=== PATIENT | female | born 1950 | race Caucasian/White ===

== ENCOUNTER 2016-09-26 09:04 | Emergency (ER) | payer MEDICARE, OTHER ==
--- NOTE | 2016-09-26 11:12 | RAD ---
Indication: Left foot injury. 3 views of left fifth digit demonstrates no fracture. No other bone or joint abnormalities identified. Soft tissue swelling is noted. IMPRESSION: No fracture of left fifth digit is noted.
[2016-09-26 11:24] VITALS: BP 139/70
--- NOTE | 2016-09-26 11:50 | UC ---
Lower Extremity/Ankle HPI - HPI Summary HPI Summary: YESTERDAY HIT LEFT FIFTH TOE ON DRESSER. BRUISING TO ANGI AND SWELLING IN FOOT. ABLE TO BEAR WEIGHT. CONCERN FOR FRACTURE - History of Current Complaint Chief Complaint: UCLowerExtremity Stated Complaint: FOOT INJURY Time Seen by Provider: 09/26/16 10:32 Hx Obtained From: Patient Hx Last Menstrual Period: post menapause Onset/Duration: Sudden Onset, Lasting Days Severity Initially: Moderate Severity Currently: Mild Aggravating Factor(s): Standing, Ambulation Able to Bear Weight: Yes - Risk Factors Gout Risk Factors: Negative DVT Risk Factors: Negative Septic Arthritis Risk Factor: Negative - Allergies/Home Medications Allergies/Adverse Reactions: Allergies Allergy/AdvReac Type Severity Reaction Status Date / Time Penicillins Allergy Severe Hives Verified 09/26/16 10:02 Propoxyphene [From Darvon] Allergy Severe Altered Verified 09/26/16 10:02 Mental Status Amoxicillin Allergy Hives Verified 09/26/16 10:02 Codeine Allergy Altered Verified 09/26/16 10:02 Mental Status crab Allergy Severe Hives Uncoded 09/26/16 10:02 eledon cream Allergy Severe Blisters Uncoded 09/26/16 10:02 Home Medications: Home Medications Risedronate (NF) [Actonel (NF)] 09/26/16 [History] PMH/Surg Hx/FS Hx/Imm Hx Previously Healthy: Yes - Surgical History Surgical History: Yes Surgery Procedure, Year, and Place: wrist surgary 2011. cyst from thyroid- 1971. tonsils-1952. D&C. tumor removed below ear - Family History Known Family History: Positive: Other Family History: Brother with breast cancer in his 60's - Social History Lives: With Family Alcohol Use: Occasionally Substance Use Type: None Smoking Status (MU): Never Smoked Tobacco - Immunization History Most Recent Influenza Vaccination: utd Most Recent Tetanus Shot: fall 2011 Most Recent Pneumonia Vaccination: utd Review of Systems Constitutional: Negative Skin: Bruising Eyes: Negative ENT: Negative Respiratory: Negative Cardiovascular: Negative Gastrointestinal: Negative Genitourinary: Negative Motor: Negative Neurovascular: Negative Musculoskeletal: Negative Neurological: Negative Psychological: Negative All Other Systems Reviewed And Are Negative: Yes Physical Exam Triage Information Reviewed: Yes Appearance: Well-Appearing, No Pain Distress, Well-Nourished Vital Signs: Initial Vital Signs Temp 97.8 F 09/26/16 10:04 Pulse 68 09/26/16 10:04 Resp 16 09/26/16 10:04 BP 145/85 09/26/16 10:04 Pulse Ox 100 09/26/16 10:04 Vital Signs Reviewed: Yes Eye Exam: Normal ENT Exam: Normal Dental Exam: Normal Neck exam: Normal Neck: Positive: Supple, Nontender, No Lymphadenopathy Respiratory Exam: Normal Respiratory: Positive: Chest non-tender, Lungs clear, Normal breath sounds, No respiratory distress, No accessory muscle use Cardiovascular Exam: Normal Cardiovascular: Positive: RRR, No Murmur, Pulses Normal Abdominal Exam: Normal Musculoskeletal Exam: Normal Musculoskeletal: Positive: Strength Intact, ROM Intact, Edema @ - LEFT FIFTH TOE Neurological Exam: Normal Psychological Exam: Normal Skin: Positive: Other - BRUISING LEFT FIFTH TOE Lower Extremity Course/Dx - Differential Dx/Diagnosis Differential Diagnosis/HQI/PQRI: Fracture (Closed), Sprain, Strain Provider Diagnoses: CONTUSION LEFT FIFTH TOE Discharge - Discharge Plan Condition: Stable Disposition: HOME Patient Education Materials: Foot Contusion (ED) Referrals: [facility] [Outside] Ashutosh Hernandez MD [Primary Care Provider] -
== END 2016-09-26 12:05 | disposition home or self-care (01) ==
LOC: UCEAST 09:04
DX: S90.122A Contusion of left lesser toe(s) without damage to nail, initial encounter (principal); W22.03XA Walked into furniture, initial encounter; Y93.9 Activity, unspecified; Y92.9 Unspecified place or not applicable; Z88.5 Allergy status to narcotic agent; Z88.0 Allergy status to penicillin
CPT/HCPCS: 99211; G0463